=== PATIENT | male | born 1955 | race Two or more races ===

== ENCOUNTER 2016-11-14 11:09 | Emergency (ER) | payer MEDICARE ==
[~2016-11-14] VITALS: Ht 180.3 cm; Wt 81.6 kg
[2016-11-14 12:01] VITALS: BP 152/82
== END 2016-11-14 12:17 | disposition home or self-care (01) ==
LOC: ER 11:09
DX: S39.012A Strain of muscle, fascia and tendon of lower back, initial encounter (principal); E11.9 Type 2 diabetes mellitus without complications; I10 Essential (primary) hypertension; W01.0XXA Fall on same level from slipping, tripping and stumbling without subsequent striking against object, initial encounter; Y93.89 Activity, other specified; Y99.8 Other external cause status; Y92.89 Other specified places as the place of occurrence of the external cause

== ENCOUNTER 2016-11-18 11:19 | Emergency (ER) | payer MEDICARE ==
[~2016-11-18] VITALS: Ht 180.3 cm; Wt 81.6 kg
[2016-11-18 12:01] VITALS: BP 157/86
[2016-11-18] MEDS ORDERED: LIDOCAINE 1% HCL (LOCAL ANESTH.) INJ 20ML MDV IN ONE (13:00)
[2016-11-18] MEDS ORDERED: cefTRIAXone SOD 1,000 MG VL IM ONE (13:15)
[2016-11-18] MEDS ORDERED: IBUPROFEN 800 MG TAB PO ONE (13:30)
[2016-11-18] MEDS ORDERED: BACITRACIN-POLYMYXIN B TOPICAL OINT UD TOP ONE (13:55)
== END 2016-11-18 14:38 | disposition home or self-care (01) ==
LOC: ER 11:19
DX: J34.0 Abscess, furuncle and carbuncle of nose (principal); E11.9 Type 2 diabetes mellitus without complications; I10 Essential (primary) hypertension
CPT/HCPCS: 10060; 87077; 87186; 87205; 96372; 99284; J0696; J2001

== ENCOUNTER 2016-11-19 12:52 | Emergency (ER) | payer MEDICARE ==
[~2016-11-19] VITALS: Ht 180.3 cm; Wt 81.6 kg
[2016-11-19 13:30] VITALS: BP 95/73
== END 2016-11-19 14:18 | disposition home or self-care (01) ==
LOC: ER 12:54
DX: J34.89 Other specified disorders of nose and nasal sinuses (principal); I10 Essential (primary) hypertension; E11.9 Type 2 diabetes mellitus without complications; Z48.817 Encounter for surgical aftercare following surgery on the skin and subcutaneous tissue

== ENCOUNTER 2017-08-04 14:15 | Emergency (ER) | payer MEDICARE ==
[~2017-08-04] VITALS: Ht 167.6 cm; Wt 77.1 kg
[2017-08-04] MEDS ORDERED: SODIUM CHLORIDE 0.9% 1,000 ML IV ONE ×3 (14:40→15:00)
[2017-08-04 15:02] VITALS: BP 120/64
[2017-08-04 15:39] LABS: Basophils # (auto) 0 uL; Basophils % (auto) 0.2 % (0.0-2.0); Eosinophils # (auto) 0.1 uL; Eosinophils % (auto) 0.8 % (0.0-7.0); Hematocrit 41.8 % (41.0-53.0); Hemoglobin 14.1 g/dL (13.5-17.5); Lymphocytes # (auto) 0.3 uL; Lymphocytes % (auto) 1.8 % (10.0-50.0); Mean Corpuscular Hemoglobin 32.4 pg (28.0-32.0); Mean Corpuscular Hgb Conc. 33.6 g/dL (32.0-36.0); Mean Corpuscular Volume 96.2 fL (80.0-100.0); Monocytes # (auto) 0.9 uL; Monocytes % (auto) 6.5 % (0.0-12.0); Neutrophils # (auto) 12.5 uL; Neutrophils % (auto) 90.7 % (37.0-80.0); Nucleated Red Blood Cells % 0.1 %; Platelet Count (auto) 230 10^3/uL (140-450); Red Blood Cells 4.35 10^6/uL (4.5-5.90); Red Cell Distribution Width 12.5 % (11.8-14.3); White Blood Cell 13.8 10^3/uL (4.4-10.8)
[2017-08-04 15:56] LABS: Prothrombin Time 10.7 sec (9.27-12.13)
[2017-08-04 15:59] LABS: Albumin 3.9 g/dL (3.4-5.0); BUN/Creatinine Ratio 21.1; Bilirubin, Total 0.7 mg/dL (0.2-1.0); Calcium 9.2 mg/dL (8.5-10.1); Potassium 5.1 mmol/L (3.5-5.1); Total Protein 7.2 g/dL (6.4-8.2)
[2017-08-04 16:00] LABS: Magnesium 1.9 mg/dL (1.6-2.6)
[2017-08-04] MEDS ORDERED: cefTRIAXone 1GM/10ml IVPUSH 10 ML IV ONE (18:15)
== END 2017-08-04 18:48 | disposition home or self-care (01) ==
LOC: EDBD 14:15 → ER 14:23
DX: E11.9 Type 2 diabetes mellitus without complications (principal); I10 Essential (primary) hypertension; R53.1 Weakness; R42 Dizziness and giddiness; J40 Bronchitis, not specified as acute or chronic; Z48.01 Encounter for change or removal of surgical wound dressing
CPT/HCPCS: 36415; 71045; 80053; 83735; 84484; 85025; 85610; 85730; 93005; 96361; 96374; 99285; J7030